=== PATIENT | female | born 1950 | race African-American/Black ===

== ENCOUNTER 2024-10-04 21:29 | Inpatient (IN) | payer OTHER ==
[~2024-10-04] VITALS: Ht 165.1 cm; Wt 118.0 kg
[~2024-10-04 21:29] MED LIST: CARV12 PO; HYDR25TA PO; INSLAN SQ; INSNOV SQ; POTA-194 PO; SIMV-46 PO
[2024-10-04 22:22] LABS: PLATELET COUNT (AUTO) 205 K/uL (150-450); RED BLOOD CELL COUNT(AUTO) 5.21 MIL/uL (4.00-5.20); RED CELL DISTRIBUTION WIDTH 15.4 % (11.5-14.5); WHITE BLOOD COUNT (AUTO) 11.5 K/uL (4.5-11.0)
[2024-10-04 22:30] LABS: CALCIUM, TOTAL 9.7 mg/dL (8.8-10.5); CREATININE 1.25 mg/dL (0.60-1.30); GLOMERULAR FILTR. RATE CALC 51 mL/min (>60); GLUCOSE,RANDOM 158 mg/dL (70-110); SODIUM SERUM 144 mmol/L (136-145); UREA NITROGEN, BLOOD 20 mg/dL (7-18)
[2024-10-04 22:36] LABS: ASPARTATE AMINOTRANSFERASE 20.0 U/L (15-37); CREATINE KINASE, TOTAL ONLY 145.0 U/L (26-192); TOTAL PROTEIN, SERUM 7.5 g/dL (6.4-8.2)
[2024-10-04 22:43] LABS: TROPONIN I-HIGH SENSITIVITY 113 ng/L (<51)
[2024-10-04 23:06] LABS: APPEARANCE,URINE CLEAR (CLEAR); GLUCOSE, URINE (UA) >=1000 mg/dL (NEGATIVE); LEUKOCYTE ESTERASE ,URINE NEGATIVE (NEGATIVE); NITRATE,URINE NEGATIVE (NEGATIVE); OCCULT BLOOD,URINE TRACE (NEGATIVE); SPECIFIC GRAVITIY, URINE 1.008 (1.003-1.030)
[2024-10-04 23:28] LABS: SQUAMOUS EPITHELIAL CELL,UR Few /LPF (None Seen)
[2024-10-04 23:29] LABS: SULFOSALICYLIC ACID,URINE 1+ (Negative)
[2024-10-04 23:31] LABS: TROPONIN I-HIGH SENSITIVITY 93 ng/L (<51)
[2024-10-05] MEDS ORDERED: MORPHINE SULFATE 2 MG/ML SYRINGE IVP PRN (02:00)
[2024-10-05] MEDS ORDERED: MAGNESIUM HYDROXIDE SUSPENSION 30 ML UDCUP PO PRN (02:00)
[2024-10-05] MEDS ORDERED: HYDROCODONE/ACETAMINOPHEN 5-325 MG TABLET PO PRN (02:00)
[2024-10-05] MEDS ORDERED: DEXTROSE 50%-WATER 25 GM/50 ML SYRINGE IVP PRN ×2 (02:00→14:45)
[2024-10-05] MEDS ORDERED: ZOLPIDEM TARTRATE 5 MG TABLET PO PRN (02:00)
[2024-10-05] MEDS ORDERED: BISACODYL 10 MG RECTAL RECTAL SUPPOSITORY PR PRN (02:00)
[2024-10-05] MEDS ORDERED: ACETAMINOPHEN 325 MG TABLET PO PRN (02:00)
[2024-10-05] MEDS ORDERED: ONDANSETRON HCL 4 MG/2 ML VIAL IVP PRN (02:00)
[2024-10-05 02:06] LABS: GLUCOMETER DEV NAME(LOC) ERT.7; GLUCOSE,POINT OF CARE 191 MG/DL (70-110)
[2024-10-05] MEDS: DEXTROSE 5%-0.45% SODIUM CHL 500 ML IV ONE (02:54)
[2024-10-05 07:50] LABS: GLUCOMETER DEV NAME(LOC) ERT.7; GLUCOSE,POINT OF CARE 150 MG/DL (70-110)
[2024-10-05 08:53] VITALS: BP 162/66; PULSE 64; RESP 19; TEMP 97.7; O2SAT 98
[2024-10-05] MEDS: PANTOPRAZOLE SODIUM 40 MG DR TABLET PO SCH (09:14)
[2024-10-05] MEDS: DOCUSATE SODIUM 100 MG CAPSULE PO SCH (09:14)
[2024-10-05] MEDS: HEPARIN SODIUM,PORCINE 5,000 UNITS/ML VIAL SQ SCH (09:15)
[2024-10-05 11:09] VITALS: BP 158/74; PULSE 68; RESP 20; TEMP 97.9; O2SAT 97
[2024-10-05 13:56] LABS: GLUCOMETER DEV NAME(LOC) 5S.1D; GLUCOSE,POINT OF CARE 247 MG/DL (70-110)
[2024-10-05 15:30] VITALS: BP 152/76; PULSE 70; RESP 19; TEMP 98.1; O2SAT 98
[2024-10-05 20:00] VITALS: BP 147/58; PULSE 66; RESP 18; TEMP 98; O2SAT 98
[2024-10-05] MEDS: SIMVASTATIN 40 MG TABLET PO SCH (21:12)
[2024-10-06 04:13] VITALS: BP 144/57; PULSE 60; RESP 18; TEMP 98.6; O2SAT 96
[2024-10-06 07:23] LABS: TROPONIN I-HIGH SENSITIVITY 114 ng/L (<51)
[2024-10-06 07:59] VITALS: BP 156/56; PULSE 58; RESP 18; TEMP 98.8; O2SAT 95
[2024-10-06 08:56] LABS: GLUCOMETER DEV NAME(LOC) 5S.1D; GLUCOSE,POINT OF CARE 203 MG/DL (70-110)
[2024-10-06 08:56] LABS: GLUCOMETER DEV NAME(LOC) 5S.2D; GLUCOSE,POINT OF CARE 234 MG/DL (70-110)
[2024-10-06 08:56] LABS: GLUCOMETER DEV NAME(LOC) 5S.2D; GLUCOSE,POINT OF CARE 261 MG/DL (70-110)
[2024-10-06 11:23] VITALS: BP 164/67; PULSE 60; RESP 18; TEMP 97.9; O2SAT 95
[2024-10-06] MEDS ORDERED: INSLAN SQ (13:24)
[2024-10-06] MEDS ORDERED: INSNOV SQ (13:24)
[2024-10-06] MEDS ORDERED: AMLO-257 PO (13:24)
[2024-10-06] MEDS ORDERED: DEXTROSE 50%-WATER 25 GM/50 ML SYRINGE IVP PRN (13:45)
[2024-10-06 15:46] VITALS: BP 164/66; PULSE 59; RESP 18; TEMP 97.5; O2SAT 95
[2024-10-06] MEDS: INSULIN LISPRO 100 UNITS/ML SQ PRN (17:52)
[2024-10-06] MEDS: INSULIN GLARGINE,HUM.REC.ANLOG 100 UNITS/ML SQ SCH (21:07)
[2024-10-07] VITALS: BP 158/68; PULSE 54; RESP 17; TEMP 98.5; O2SAT 98
[2024-10-07 01:36] LABS: GLUCOMETER DEV NAME(LOC) 5S.1D; GLUCOSE,POINT OF CARE 260 MG/DL (70-110)
[2024-10-07 01:36] LABS: GLUCOMETER DEV NAME(LOC) 5S.1D; GLUCOSE,POINT OF CARE 294 MG/DL (70-110)
[2024-10-07 01:36] LABS: GLUCOMETER DEV NAME(LOC) 5S.1D; GLUCOSE,POINT OF CARE 294 MG/DL (70-110)
[2024-10-07 07:05] LABS: GLUCOMETER DEV NAME(LOC) 5S.1D; GLUCOSE,POINT OF CARE 268 MG/DL (70-110)
[2024-10-07] MEDS ORDERED: INSLAN SQ (07:19)
[2024-10-07] MEDS: INSULIN GLARGINE,HUM.REC.ANLOG 100 UNITS/ML SQ SCH (08:44)
[2024-10-07 08:54] VITALS: BP 162/75; PULSE 60; RESP 18; TEMP 98.2; O2SAT 95
[2024-10-07 09:16] LABS: GLUCOMETER DEV NAME(LOC) 5S.1D; GLUCOSE,POINT OF CARE 204 MG/DL (70-110)
[2024-10-07] MEDS ORDERED: AMLO-257 PO (10:32)
== END 2024-10-07 12:45 | disposition home or self-care (01) | DRG 637 ==
LOC: EMS 21:30 → EDH 10-05 01:47 → 5S 10-05 08:45
PROVIDERS: ADMIT Internal Medicine; ATTEND Internal Medicine
DX: E11.649 Type 2 diabetes mellitus with hypoglycemia without coma (principal); G93.41 Metabolic encephalopathy; Z59.00 Homelessness unspecified; I11.0 Hypertensive heart disease with heart failure; I50.9 Heart failure, unspecified; E78.00 Pure hypercholesterolemia, unspecified; R79.89 Other specified abnormal findings of blood chemistry; Z79.4 Long term (current) use of insulin; Z79.899 Other long term (current) drug therapy; Z91.041 Radiographic dye allergy status
CPT/HCPCS: 71045; 80048; 80076; 81001; 81002; 82550; 82962; 83036; 83880; 84484; 85025; 87086; 93005; 93306; 99285; J1644; J1815; J7060; 36415-L1; 36415-TC